=== PATIENT | male | born 1975 | race Caucasian/White ===

== ENCOUNTER 2023-03-07 10:28 | Day surgery (SDC) | payer BC ==
[2023-03-07] VITALS (15 sets, daily range): BP systolic 106–123; BP diastolic 64–85; PULSE 57–91; RESP 12–20; TEMP 97.6; O2SAT 94–98
[~2023-03-07] VITALS: Ht 188 cm; Wt 102.7 kg
[2023-03-07] MEDS ORDERED: normal saline 1000ml 1,000 ML IV SCH (10:50)
[2023-03-07] MEDS ORDERED: MIDAZolam 1mg/ml 10ml vial IV ONE (10:50)
[2023-03-07] MEDS ORDERED: fentaNYL/PF 50MCG/1 ML 2ML syringe IV ONE (10:50)
[2023-03-07] MEDS ORDERED: METO-411 PO (10:54)
[2023-03-07] MEDS ORDERED: EMPA10TA PO (10:54)
[2023-03-07] MEDS ORDERED: FURO20TA4 PO (10:54)
[2023-03-07] MEDS ORDERED: SILD100T70 PO (10:54)
[2023-03-07] MEDS ORDERED: APIX5TAB3 PO (10:54)
[2023-03-07] MEDS ORDERED: LISI5TAB22 PO (10:54)
[2023-03-07 11:09] LABS: BASOPHILS # (AUTO) 0.1 X10'3 (0-0.2); EOSINOPHILS # (AUTO) 0.3 X10'3 (0-0.9); EOSINOPHILS % (AUTO) 4.2 % (0-6); HEMATOCRIT 46.1 % (42.0-52.0); HEMOGLOBIN 15.9 g/dl (14.0-17.9); LYMPHOCYTES # (AUTO) 2.1 X10'3 (1.1-4.8); LYMPHOCYTES % (AUTO) 32.4 % (21-51); MEAN CORPUSCULAR HEMOGLOBIN 34.3 PG (27.0-31.0); MEAN CORPUSCULAR HGB CONC 34.6 g/dL (33.0-36.5); MEAN CORPUSCULAR VOLUME 99.2 FL (78-98); MEAN PLATELET VOLUME 8.8 FL (7.4-10.4); MONOCYTES # (AUTO) 0.7 X10'3 (0-0.9); NEUTROPHILS # (AUTO) 3.4 X10'3 (1.8-7.7); NEUTROPHILS % (AUTO) 52.4 % (42-75); PLATELET COUNT 189 X10'3 (140-440); RED BLOOD COUNT 4.64 X10'6 (4.70-6.10); WHITE BLOOD COUNT 6.5 X10'3 (4.5-11.0)
[2023-03-07 11:21] LABS: INR 1.1 INR; PROTHROMBIN TIME 11.3 SECONDS (9.0-12.0)
[2023-03-07 11:24] LABS: ALBUMIN 3.6 G/DL (3.4-5.0); CALCIUM 9.3 MG/DL (8.5-10.1); TOTAL CARBON DIOXIDE 30.1 MMOL/L (24-32)
[2023-03-07 11:31] LABS: ANION GAP 7 (8-16); BLOOD UREA NITROGEN 18 MG/DL (7-18); BUN/CREATININE RATIO 19.4 (10.0-20.0); CHLORIDE 102 MMOL/L (99-107); CREATININE 0.93 MG/DL (0.60-1.10); GLUCOSE 120 MG/DL (70-104); POTASSIUM 4.1 MMOL/L (3.5-5.1); SODIUM 139 MMOL/L (135-145); eCRCL 114 ML/MIN; eGFR 87 ML/MIN
== END 2023-03-07 13:55 | disposition home or self-care (01) ==
LOC: SSTAY O 10:28
PROVIDERS: ATTEND Student in an Organized Health Care Education/Training Program
DX: I48.91 Unspecified atrial fibrillation (principal); I08.1 Rheumatic disorders of both mitral and tricuspid valves; E11.9 Type 2 diabetes mellitus without complications; I11.0 Hypertensive heart disease with heart failure; I50.9 Heart failure, unspecified; F41.9 Anxiety disorder, unspecified; F10.10 Alcohol abuse, uncomplicated; F14.10 Cocaine abuse, uncomplicated; Z79.899 Other long term (current) drug therapy; Z79.01 Long term (current) use of anticoagulants
CPT/HCPCS: 36415; 80048; 85025; 85610; 92960; 93005; 93312; 94760; J2250; J3010; J7030; A4620